=== PATIENT | female | born 1975 | race Caucasian/White ===

== ENCOUNTER 2018-10-19 12:54 | Outpatient (REF) | payer BC, SELFPAY ==
--- NOTE | 2018-10-19 11:45 | PAPFT_PTH ---
PATIENT: Marcia Fitzgerald LOC: [facility] U#:[id number] AGE/SX: 43/F ROOM: RE10/19/[address]: Ruth Palomo : 1975 BED: DIS: 10/19/2018 SPEC #: [id number] RECD: 10/19/18 18:19 STATUS: SARABJIT REQ #: [id number] RIK: 10/19/18 11:[address]: Ruth Palomo DEPT: [facility] Cytology RECD BY: Vanita Parmar Tissues: 1 - CX/ENDOCX FOR PAP SMEARS Procedures: PAP THIN PREP/UVM Screening HPV DNA PROBE Comments: [id number]
== END 2018-10-19 13:14 ==
LOC: NCHCN 12:54
PROVIDERS: PCP Nurse Practitioner Family; Visit Provider Nurse Practitioner Family
DX: Z00.00 Encounter for general adult medical examination without abnormal findings (principal); Z12.4 Encounter for screening for malignant neoplasm of cervix; Z11.51 Encounter for screening for human papillomavirus (HPV)
CPT/HCPCS: 88142; 87624

== ENCOUNTER → 2021-08-20 01:56 | Outpatient (CLI) | payer BC, SELFPAY | PROVIDERS: PCP Nurse Practitioner Family; Visit Provider Nurse Practitioner Family ==

== ENCOUNTER 2021-11-08 00:08 | Outpatient (CLI) | payer BC, SELFPAY ==
--- NOTE | 2021-11-08 14:00 | DI.US_ITS ---
Exam(s) US BREAST RT COMPLETE MG MAMMO DIAGNOSTIC BI EXAM: MG MAMMO DIAGNOSTIC BI CLINICAL HISTORY: RT BREAST CYST, REDNESS, SWELLING, N60.90 TECHNIQUE: Mammograms were interpreted according to the usual protocol including computer analysis w [employer] CAD system, tomosynthesis and C-view imaging. Complete right breast ultrasound COMPARISON: mammogram and right breast ultrasound from 2013 FINDINGS: Bilateral mammograms: The breasts are composed of heterogeneously dense fibroglandular densities, Breast Density category C . No suspicious masses or suspicious microcalcifications are seen. Areas of nodularity are noted in th e upper outer and subareolar regions of the right breast. No abnormalities are seen left breast. No skin thickening or abnormal axillary lymph nodes are seen. Right breast ultrasound: Multiple cysts are noted, some simple and others with low level echoes indicating proteinaceous mater ial. Largest cyst measures 1.7 cm in the 7 o'clock position 1 cm from the nipple. A cyst in the 8 o 'clock position measures of 11 x 7 by 10 millimeters. Two adjacent proteinaceous cysts are noted in the 11 o'clock position 1 cm from the nipple measuring 1 cm size. No suspicious masses are identifie d. IMPRESSION: . BI-RADS Category 2- negative mammogram with benign findings. Yearly screening mammography is recomme nded. Breast Density Category C, heterogeneously Dense. The mammogram demonstrates the patient's breast tissue is dense. Dense breast tissue is very common a nd is not abnormal but dense breast tissue can make it harder to find cancer on a mammogram. Also, de nse breast tissue may increase breast cancer risk. This information about the result of the mammogram report was provided to the patient to raise their awareness. Use this report when you speak with the patient about their risks for breast cancer, which includes their family history. At that time, you may recommend additional screening tests (Ultrasound or MRI) as they might be useful based on their r isk. A negative radiographic report should not delay biopsy if a dominant or clinically suspicious mass is present. Up to ten percent of cancers are not identified on mammography. A negative report may reinforce clinical impression. Adenosis and dense breasts may obscure an underlying neoplasm. False positive reports average 6 to 10%.
== END 2021-11-08 00:28 ==
LOC: DI 00:08
PROVIDERS: PCP Nurse Practitioner Family; Visit Provider Nurse Practitioner Family
DX: N60.02 Solitary cyst of left breast (principal); R92.8 Other abnormal and inconclusive findings on diagnostic imaging of breast
CPT/HCPCS: 76642; 77062; 77066; G0279